=== PATIENT | male | born 1950 | race American Indian/Alaskan Native ===

== ENCOUNTER 2017-08-26 23:04 | Emergency (ER) | payer MEDICARE, OTHER ==
[2017-08-27 00:14] LABS: Basophils % (Auto) 0.2 % (0.0-1.8); Hematocrit 47.3 % (35.5-45.6); Hemoglobin 15.8 gm/dl (11.8-15.2); Mean Corpuscular HGB Conc 33 % (32-34); Mean Corpuscular Hemoglobin 32 pg (28-32); Mean Corpuscular Volume 96 fl (84-94); Platelet Count 304 K/mm3 (140-440); Red Blood Count 4.91 M/mm3 (3.65-5.03); Red Cell Distribution Width 14.4 % (13.2-15.2); White Blood Count 13.1 K/mm3 (4.5-11.0)
--- NOTE | 2017-08-27 00:17 | XRay Report ---
FINAL REPORT EXAM: XR CHEST ROUTINE 2V HISTORY: shortness of breath COMPARISON: None available. FINDINGS:: Frontal and lateral views of the chest obtained. Cardiac silhouette is within normal limits. Subtle linear density left lung base likely reflects prominent vessel. Otherwise, no focal consolidation or effusion. No pneumothorax. Visualized bony thorax is grossly intact. IMPRESSION:: Faint linear density left lung base suspect represent prominent vessel or focus of atelectasis. Pneumonia less likely. Lungs are otherwise clear.
[2017-08-27 00:30] LABS: Calcium 8.8 mg/dL (8.4-10.2); Chloride 96.8 mmol/L (98-107); Potassium 5.1 mmol/L (3.6-5.0)
[2017-08-27] MEDS ORDERED: ZOFRAN IV ONE (08:16)
[2017-08-27] MEDS ORDERED: NACL 0.9% 1000 ML 1,000 ML IV ONE (08:16)
[2017-08-27] MEDS ORDERED: NACL ONE (08:38)
--- NOTE | 2017-08-27 08:48 | XRay Report ---
SUPINE KUB: History: Abdominal pain, nausea and vomiting. The abdominal gas pattern is unremarkable. No masses or organomegaly is identified and there is no gross evidence of free air or fluid. No significant soft tissue calcifications are noted. IMPRESSION: Normal study.
--- NOTE | 2017-08-27 09:16 | Cat Scan Report ---
CT ABDOMEN PELVIS WITH CONTRAST: HISTORY: abdominal pain, nausea and vomiting. COMPARISON: none. TECHNIQUE: Helical CT in 1.25mm intervals following IV contrast. Sagittal and coronal reconstructions. FINDINGS: Lung bases: Normal. Liver: Normal. Biliary system: Normal. Pancreas: Normal. Spleen: Normal. Kidneys/ureters/bladder: Normal. Adrenal glands: Normal. Aorta: Mild scattered calcifications. No aneurysm or stenosis. Intestines: Within normal limits given no oral contrast was administered. No evidence for focal inflammation or obstruction. Appendix: Not confidently identified, correlate with surgical history. Pelvic viscera: Normal. Ascites: None. Adenopathy: None. Musculoskeletal: Minor degenerative changes in the lumbar spine. IMPRESSION: Essentially unremarkable CT of the abdomen and pelvis. No acute process is noted.
[2017-08-27 09:31] LABS: Alanine Aminotransferase 9 units/L (7-56); Albumin 3.4 g/dL (3.9-5); Alkaline Phosphatase 63 units/L (35-129); Bilirubin,Direct < 0.2 mg/dL (0-0.2); Bilirubin,Indirect 0.2 mg/dL; Total Protein 6.9 g/dL (6.3-8.2)
[2017-08-27 09:37] LABS: Mucus,Urine FEW /HPF
[2017-08-27 09:38] LABS: Bacteria,Urine 1+ /HPF (Negative)
[2017-08-27 09:51] LABS: Bilirubin,Urine Negative (Negative); Ketones,Urine Trace mg/dL (Negative)
[2017-08-27 09:52] LABS: Blood,Urine Moderate (Negative)
[2017-08-27 09:53] LABS: Leukocyte Esterase,Urine Negative (Negative); Nitrite,Urine Negative (Negative); Urobilinogen,Urine < 2.0 mg/dL (<2.0)
--- NOTE | 2017-08-27 13:06 | Emergency Department Report ---
ED N/V/D HPI - General Chief complaint: Dyspnea/Respdistress Stated complaint: CHEST PAIN Time Seen by Provider: 08/27/17 08:13 Source: patient Mode of arrival: Ambulatory Limitations: No Limitations - History of Present Illness Initial comments: 67 YO MALE WITH N/V X 1 DAY. HE HAS BEEN NAUSEATED FOR 1 WEEK AND JUST GBEGAN VOMITING FTODAY. HE HAS LOST 6-10 LBS IN THE PAST TWO WEEKS. HIS EMESIS IS BILIOUS HE DENIES ABDOMINAL PAIN MD complaint: nausea, vomiting -: Gradual (NAUSEA FOR 1 WEEK), days(s) ( 1 DAY AGO VOMITING BEGAN) Description of Vomiting: bilious Associated Abdominal Pain: No Pain Scale: 0 Consistency: constant Improves with: none - Related Data Previous Rx's Medication Instructions Recorded Last Taken Type Promethazine [Phenergan TAB] 25 mg PO Q8HR PRN #12 tab 08/27/17 Unknown Rx Allergies Allergy/AdvReac Type Severity Reaction Status Date / Time No Known Allergies Allergy Unverified 08/26/17 23:51 ED Review of Systems ROS: Stated complaint: CHEST PAIN Other details as noted in HPI Constitutional: denies: chills, fever Eyes: denies: eye pain, eye discharge, vision change ENT: denies: ear pain, throat pain Respiratory: denies: cough, shortness of breath, wheezing Cardiovascular: denies: chest pain, palpitations Endocrine: no symptoms reported Gastrointestinal: denies: abdominal pain, diarrhea Genitourinary: denies: urgency, dysuria Musculoskeletal: denies: back pain, joint swelling, arthralgia Skin: denies: rash, lesions Neurological: denies: headache, weakness, paresthesias Psychiatric: denies: anxiety, depression Hematological/Lymphatic: denies: easy bleeding, easy bruising ED Past Medical Hx - Past Medical History Previous Medical History?: Yes Hx Hypertension: Yes - Surgical History Past Surgical History?: No - Social History Smoking Status: Never Smoker Substance Use Type: None, Marijuana - Medications Home Medications: Home Medications Medication Instructions Recorded Confirmed Last Taken Type Promethazine [Phenergan TAB] 25 mg PO Q8HR PRN #12 tab 08/27/17 Unknown Rx ED Physical Exam - General Limitations: No Limitations General appearance: alert, in distress (VOMITING,NAUSEATED), cachectic - Head Head exam: Present: atraumatic, normocephalic - Eye Eye exam: Present: normal appearance, EOMI - ENT ENT exam: Present: mucous membranes moist - Neck Neck exam: Present: normal inspection, full ROM - Respiratory Respiratory exam: Present: normal lung sounds bilaterally. Absent: respiratory distress - Cardiovascular Cardiovascular Exam: Present: regular rate, normal rhythm. Absent: systolic murmur, diastolic murmur, rubs, gallop - GI/Abdominal GI/Abdominal exam: Present: soft, normal bowel sounds - Rectal Rectal exam: Present: deferred - Extremities Exam Extremities exam: Present: normal inspection, full ROM - Back Exam Back exam: Present: normal inspection, full ROM - Neurological Exam Neurological exam: Present: alert, oriented X3, CN II-XII intact - Psychiatric Psychiatric exam: Present: normal affect, normal mood - Skin Skin exam: Present: warm, dry, intact, normal color. Absent: rash ED Course Vital Signs 08/26/17 08/27/17 08/27/17 23:46 06:47 06:48 Temperature 98.9 F 98.0 F 98 F Pulse Rate 80 87 84 Respiratory 18 18 18 Rate Blood Pressure 128/84 141/88 141/88 Blood Pressure [Right] O2 Sat by Pulse 100 97 95 Oximetry 08/27/17 08/27/17 08/27/17 07:10 07:24 07:30 Temperature 97.7 F Pulse Rate 74 66 67 Respiratory 18 18 14 Rate Blood Pressure 146/92 Blood Pressure 139/87 [Right] O2 Sat by Pulse 100 99 100 Oximetry 08/27/17 08/27/17 08/27/17 07:45 08:00 08:15 Temperature Pulse Rate 69 67 73 Respiratory 14 14 17 Rate Blood Pressure 146/92 157/91 157/91 Blood Pressure [Right] O2 Sat by Pulse 96 97 98 Oximetry 08/27/17 08/27/17 08/27/17 08:31 10:27 10:31 Temperature 98.6 F Pulse Rate 74 74 Respiratory 17 16 Rate Blood Pressure 157/91 128/91 127/82 Blood Pressure 128/91 [Right] O2 Sat by Pulse 99 Oximetry 08/27/17 08/27/17 08/27/17 10:45 11:01 11:17 Temperature Pulse Rate Respiratory Rate Blood Pressure 148/89 126/49 126/49 Blood Pressure [Right] O2 Sat by Pulse 97 98 Oximetry 12/08/27/17 08/27/17 11:30 11:45 12:01 Temperature Pulse Rate Respiratory Rate Blood Pressure 133/71 133/71 133/71 Blood Pressure [Right] O2 Sat by Pulse 97 99 100 Oximetry 08/27/17 13:01 Temperature Pulse Rate 76 Respiratory 18 Rate Blood Pressure Blood Pressure 147/90 [Right] O2 Sat by Pulse 98 Oximetry ED Medical Decision Making - Lab Data Result diagrams: 08/26/17 23:55 08/26/17 23:55 - Radiology Data Radiology results: report reviewed (CT ABD/PELVIS:NEGATIVE CXR/ACUTEABD SERIES: NEGATIVE) - Medical Decision Making ALL STUDIES NEGATIVE AND PT IS NO LONGER VOMITING , I WILL D/C HIM TO FOLLOW UP WITH HIS DR IN TWO DAYS. I BELIEVE IT IS THE MARIJUANA THAT IS MIXED WITH SOME UNKNOWN SUBSTANCE THAT IS CAUSING THIS VOMITING. I HAVE SEEN MULTIPLE PT WITH THE SAME THING. Critical care attestation.: If time is entered above; I have spent that time in minutes in the direct care of this critically ill patient, excluding procedure time. ED Disposition Clinical Impression: Dehydration Disposition: DC-01 TO HOME OR SELFCARE Is pt being admited?: No Does the pt Need Aspirin: No Condition: Stable Instructions: Acute Nausea and Vomiting (ED), Dehydration (ED) Additional Instructions: RETURN TO THE ER IF YOUR SYMPTOMS RETURN OR YOU BEGIN TO HAVE ABDOMINAL PAIN. PLEASE STOP DOING MARIJUANA, IT IS POSSIBLE THAT IT IS MIXED WITH SOME SUBSTANCE THAT IS MAKING YOU SICK. OTHERWISE FOLLOWUP WITH YOUR DOCTOR IN TWO DAYS Prescriptions: Promethazine [Phenergan TAB] 25 mg PO Q8HR PRN #12 tab PRN Reason: Nausea Referrals: KELL PEDERSON MD [Primary Care Provider] - 3-5 Days Time of Disposition: 14:42
[2017-08-27 15:27] VITALS: BP 137/82
== END 2017-08-27 15:27 | disposition home or self-care (01) ==
LOC: ED 23:04
DX: E86.0 Dehydration (principal); I10 Essential (primary) hypertension; F12.10 Cannabis abuse, uncomplicated
CPT/HCPCS: 36415; 71020; 74000; 74177; 80048; 80074; 81001; 83690; 85025; 87040; 93005; 93010; 96361; 96374; 99285; J2405; J7030; Q9967; 80307